=== PATIENT | male | born 1950 ===

== ENCOUNTER 2017-04-16 10:13 | Day surgery (SDC) | payer OTHER ==
[2016-06-16 08:16] VITALS: BMI 24.2
[2017-04-16] MEDS ORDERED: Lidocaine Hydrochloride 5 ML INJ ONE (14:07)
[2017-04-16] MEDS ORDERED: Propofol 10 mg/ml Inj (20 ML) ONE (14:07)
[2017-04-16 15:33] VITALS: TEMP 97.1
[2017-04-16 16:18] VITALS: BP 133/71; PULSE 79; RESP 18; O2SAT 97
== END 2017-04-16 15:52 | disposition home or self-care (01) ==
LOC: C.ENDO 10:13
PROVIDERS: ATTEND Internal Medicine Gastroenterology
DX: Z12.11 Encounter for screening for malignant neoplasm of colon (principal); K64.8 Other hemorrhoids
CPT/HCPCS: 45378; J2704